=== PATIENT | male | born 1945 | race Caucasian/White ===

== ENCOUNTER 2021-08-11 18:54 | Emergency (ER) | payer MEDICARE, BC ==
[2021-08-11] MEDS ORDERED: Ondansetron ODT 4 MG TAB ONE (20:07)
== END 2021-08-11 20:07 | disposition home or self-care (01) ==
LOC: MADERS 18:54
DX: R11.2 Nausea with vomiting, unspecified (principal); R10.9 Unspecified abdominal pain; I10 Essential (primary) hypertension; F17.220 Nicotine dependence, chewing tobacco, uncomplicated
CPT/HCPCS: 99283; Q0162